=== PATIENT | female | born 1935 | race Asian ===

== ENCOUNTER → 2018-10-31 | Day surgery (SDC) | payer MEDICARE, MEDICAID ==
[2018-10-28 10:17] LABS: Eosinophils # (auto) 0.1 uL; Lymphocytes # (auto) 1.5 uL; Mean Corpuscular Hgb Conc. 32.1 g/dL (32.0-36.0)
[2018-10-28 10:18] LABS: Basophils # (auto) 0.1 uL; Basophils % (auto) 1.2 % (0.0-2.0); Eosinophils % (auto) 1.5 % (0.0-7.0); Hematocrit 39.3 % (36.0-46.0); Hemoglobin 12.6 g/dL (12.2-16.2); Mean Corpuscular Hemoglobin 21.1 pg (28.0-32.0); Mean Corpuscular Volume 65.7 fL (80.0-100.0); Monocytes # (auto) 0.4 uL; Monocytes % (auto) 8.3 % (0.0-12.0); Neutrophils # (auto) 2.7 uL; Platelet Count (auto) 212 10^3/uL (140-450); Red Blood Cells 5.99 10^6/uL (4.0-5.20); Red Cell Distribution Width 16.5 % (11.8-14.3); White Blood Cell 4.7 10^3/uL (4.4-10.8)
[2018-10-28 10:29] LABS: INR 0.93 (0.9-1.15); Partial Thromboplastin Time 24.9 sec (23.78-33.04)
[~2018-10-31] VITALS: Ht 157.5 cm; Wt 54.4 kg
[~2018-10-31] MED LIST: BUDE0.5S IN; CELE1CAP8 PO; DOCU100T15 PO; FERR-7 PO; LIDOCAINE VISCOUS 2% 15ML UD ONE; MIDAZOLAM HCL 5 MG/ML-1ML VIAL ONE; MONT10TA34 PO; PANT40TA2 PO; SODIUM CHLORIDE LOCK 10 ML ONE; VALS80TA42 PO; diphenhdrAMINE HCL 50 MG/1 ML VL ONE; fentaNYL CITRATE 100 MCG/2 ML VL ONE
[2018-10-31 09:37] VITALS: BP 126/76
== END | disposition home or self-care (01) ==
LOC: GI 07:32
PROVIDERS: ATTEND Internal Medicine Gastroenterology
DX: R05 Cough (principal); J45.909 Unspecified asthma, uncomplicated; Z98.890 Other specified postprocedural states
CPT/HCPCS: 36415; 43235; 85025; 85610; 85730; J2250; J3010